=== PATIENT | male | born 1970 | race Caucasian/White ===

== ENCOUNTER → 2017-01-03 | Outpatient (CLI) | payer MEDICAID ==
[~2017-01-03] MED LIST: ADVAIR DIS14 PUFF/DI INH; ADVAIR DIS14 PUFF/IN INH; LIPITOR10 MG PO; MOBIC15 MG PO; PROVENTIL HFA6.7 GM INH; SINGULAIR10 M1 PO; SPIRIVA RESPIMAT4 GM INH; SPIRIVA18 MCG INH
== END | disposition short-term general hospital (02) ==
LOC: CLPULM 12:04
DX: J44.9 Chronic obstructive pulmonary disease, unspecified (principal); E66.9 Obesity, unspecified; R06.83 Snoring; G47.10 Hypersomnia, unspecified; I10 Essential (primary) hypertension; F43.10 Post-traumatic stress disorder, unspecified; F41.9 Anxiety disorder, unspecified; Z87.898 Personal history of other specified conditions; Z87.891 Personal history of nicotine dependence

== ENCOUNTER 2017-02-06 10:40 | Emergency (ER) | payer MEDICAID ==
[~2017-02-06] VITALS: Ht 180.3 cm; Wt 129.6 kg
== END 2017-02-06 11:50 | disposition short-term general hospital (02) ==
LOC: ER 10:40
PROC: 3E0U33Z Introduction of Anti-inflammatory into Joints, Percutaneous Approach (ICD-10-PCS; principal; 2017-02-06)
DX: M25.562 Pain in left knee (principal); W19.XXXA Unspecified fall, initial encounter; Z88.8 Allergy status to other drugs, medicaments and biological substances
CPT/HCPCS: J3301